=== PATIENT | male | born 1965 | race Caucasian/White ===

== ENCOUNTER 2017-04-20 11:03 | Inpatient (IN) | payer SELFPAY ==
[2017-04-20] MEDS: NS 1,000 ML IV ×2 (11:30→16:57)
[2017-04-20 11:48] LABS: BASO % 0.3 % (0.0-1.0); EOS # 0.1 10^3/uL (0.0-0.50); EOS % 0.6 % (0.0-3.0); HEMATOCRIT 41.1 % (42.0-52.0); HEMOGLOBIN 13.7 g/dl (14.0-18.0); IMMATURE GRANULOCYTE # 0.1 10^3/uL (0-0); IMMATURE GRANULOCYTE % 0.6 % (0-0); LYMPH # 1.5 10^3/uL (1.5-4.5); LYMPH % 10.5 % (24.0-44.0); MEAN CORPUSCULAR HEMOGLOBIN 30.3 pg (27.0-33.0); MEAN CORPUSCULAR HGB CONC 33.3 g/dl (32.0-36.5); MEAN CORPUSCULAR VOLUME 90.9 fl (80.0-96.0); MONO # 1.1 10^3/uL (0.0-0.8); MONO % 7.9 % (0.0-5.0); NEUTROPHILS # 11.1 10^3/uL (1.8-7.7); NEUTROPHILS % 80.1 % (36.0-66.0); PLATELET COUNT, AUTOMATED 367 10^3/uL (150-450); RED BLOOD COUNT 4.52 10^6/uL (4.30-6.10); RED CELL DISTRIBUTION WIDTH 12.9 % (11.5-14.5); WHITE BLOOD COUNT 13.9 10^3/uL (4.0-10.0)
[2017-04-20 12:03] LABS: INR 1.07
[2017-04-20 12:27] LABS: ALBUMIN 3.6 GM/DL (3.2-5.2); ALBUMIN/GLOBULIN RATIO 0.97 (1.00-1.93); ALKALINE PHOSPHATASE 66 U/L (45-117); ALT/SGPT 29 U/L (12-78); AMYLASE 30 U/L (25-115); ANION GAP 5 MEQ/L (8-16); AST/SGOT 20 U/L (7-37); BILIRUBIN,DIRECT 0.1 MG/DL (0.0-0.2); BILIRUBIN,TOTAL 0.7 MG/DL (0.2-1.0); BLOOD UREA NITROGEN 18 MG/DL (7-18); CALCIUM LEVEL 8.9 MG/DL (8.5-10.1); CARBON DIOXIDE LEVEL 29 MEQ/L (21-32); CHLORIDE LEVEL 104 MEQ/L (98-107); CREATININE FOR GFR 0.86 MG/DL (0.70-1.30); GLOMERULAR FILTRATION RATE > 60.0 (>56); GLUCOSE, FASTING 99 MG/DL (70-105); LIPASE 74 U/L (73-393); POTASSIUM SERUM 3.9 MEQ/L (3.5-5.1); SODIUM LEVEL 138 MEQ/L (136-145); TOTAL PROTEIN 7.3 GM/DL (6.4-8.2)
[2017-04-20 13:05] LABS: KETONE, URINE AUTO RFX TRACE mg/dL (NEGATIVE); LEUKOCYTE ESTERASE UR AUTO RFX NEGATIVE (NEGATIVE); MUCUS, URINE RFX SMALL (NEGATIVE); NITRITE, URINE AUTO RFX NEGATIVE (NEGATIVE); RBC, URINE AUTO RFX 3 /HPF (0-3); SQUAM EPITHELIAL CELL UR AURFX 0 /HPF (0-6); WBC, URINE AUTO RFX 1 /HPF (0-3)
[2017-04-20] MEDS ORDERED: zolPIDEM TARTRATE 10MG TAB PO (14:00)
[2017-04-20] MEDS ORDERED: MORPHINE 2 MG/ML 1ML SYRINGE IV (14:00)
[2017-04-20] MEDS ORDERED: MORPHINE 4 MG/ML 1ML SYRINGE IV (14:00)
[2017-04-20] MEDS ORDERED: NORCO, ANEXSIA 5/325MG TABLET (HYDROcodone/ACETAMINOPHEN) PO ×2 (14:00)
[2017-04-20] MEDS ORDERED: METOCLOPRAMIDE INJ 10MG/2ML VIAL (J2765) IV (14:00)
[2017-04-20] MEDS ORDERED: ONDANSETRON 4MG/2ML VIAL (J2405) IV (14:00)
[2017-04-20] MEDS ORDERED: PROMETHAZINE INJ 25 MG/ML VIAL (J2550) IV (14:00)
[2017-04-20] MEDS: CIPROFLOXACIN 400 MG in APPROPRIATE DILUENT 1 EA IV (16:57)
[2017-04-20] MEDS: PANTOPRAZOLE 40MG INJ (PROTONIX) (C9113) IV (16:57)
[2017-04-20] MEDS: KETOROLAC 30 MG/ML VIAL (J1885) IV (16:58)
[2017-04-20] MEDS: metroNIDAZOLE 500 MG in APPROPRIATE DILUENT 1 EA IV (18:09)
[2017-04-21] MEDS: metroNIDAZOLE 500 MG in APPROPRIATE DILUENT 1 EA IV ×3 (00:17→17:24)
[2017-04-21] MEDS: KETOROLAC 30 MG/ML VIAL (J1885) IV ×2 (00:18→14:12)
[2017-04-21] MEDS: CIPROFLOXACIN 400 MG in APPROPRIATE DILUENT 1 EA IV ×2 (03:17→14:12)
[2017-04-21] MEDS: NS 1,000 ML IV ×3 (04:52→14:02)
[2017-04-21 06:19] LABS: HEMATOCRIT 37.2 % (42.0-52.0); HEMOGLOBIN 12.1 g/dl (14.0-18.0); MEAN CORPUSCULAR HEMOGLOBIN 30.6 pg (27.0-33.0); MEAN CORPUSCULAR HGB CONC 32.5 g/dl (32.0-36.5); MEAN CORPUSCULAR VOLUME 93.9 fl (80.0-96.0); PLATELET COUNT, AUTOMATED 278 10^3/uL (150-450); RED BLOOD COUNT 3.96 10^6/uL (4.30-6.10); RED CELL DISTRIBUTION WIDTH 12.8 % (11.5-14.5); WHITE BLOOD COUNT 10.3 10^3/uL (4.0-10.0)
[2017-04-21 06:33] LABS: ANION GAP 6 MEQ/L (8-16); BLOOD UREA NITROGEN 20 MG/DL (7-18); CALCIUM LEVEL 8.3 MG/DL (8.5-10.1); CARBON DIOXIDE LEVEL 29 MEQ/L (21-32); CHLORIDE LEVEL 106 MEQ/L (98-107); CREATININE FOR GFR 0.94 MG/DL (0.70-1.30); GLOMERULAR FILTRATION RATE > 60.0 (>56); GLUCOSE, FASTING 83 MG/DL (70-105); POTASSIUM SERUM 4.2 MEQ/L (3.5-5.1); SODIUM LEVEL 141 MEQ/L (136-145)
[2017-04-21] MEDS: PANTOPRAZOLE 40MG INJ (PROTONIX) (C9113) IV (07:59)
[2017-04-21] MEDS: NICOTINE 14 MG/24 HR TRANSDERMAL TD (18:43)
[2017-04-22] MEDS: metroNIDAZOLE 500 MG in APPROPRIATE DILUENT 1 EA IV ×4 (00:11→23:18)
[2017-04-22] MEDS: NS 1,000 ML IV ×4 (00:12→23:18)
[2017-04-22] MEDS: CIPROFLOXACIN 400 MG in APPROPRIATE DILUENT 1 EA IV ×2 (03:08→14:17)
[2017-04-22 06:22] LABS: HEMATOCRIT 37.1 % (42.0-52.0); MEAN CORPUSCULAR HGB CONC 32.3 g/dl (32.0-36.5); MEAN CORPUSCULAR VOLUME 92.8 fl (80.0-96.0); PLATELET COUNT, AUTOMATED 307 10^3/uL (150-450); RED CELL DISTRIBUTION WIDTH 12.5 % (11.5-14.5); WHITE BLOOD COUNT 6.2 10^3/uL (4.0-10.0)
[2017-04-22 06:31] LABS: ANION GAP 4 MEQ/L (8-16); BLOOD UREA NITROGEN 15 MG/DL (7-18); CALCIUM LEVEL 8.3 MG/DL (8.5-10.1); CARBON DIOXIDE LEVEL 30 MEQ/L (21-32); CHLORIDE LEVEL 108 MEQ/L (98-107); CREATININE FOR GFR 0.88 MG/DL (0.70-1.30); GLOMERULAR FILTRATION RATE > 60.0 (>56); GLUCOSE, FASTING 91 MG/DL (70-105); POTASSIUM SERUM 4.3 MEQ/L (3.5-5.1); SODIUM LEVEL 142 MEQ/L (136-145)
[2017-04-22] MEDS: PANTOPRAZOLE 40MG INJ (PROTONIX) (C9113) IV (08:47)
[2017-04-22] MEDS: NICOTINE 14 MG/24 HR TRANSDERMAL TD (08:48)
[2017-04-22] MEDS: ACETAMINOPHEN TAB 650MG DOSE (2X325MG) PO (16:36)
[2017-04-23] MEDS: CIPROFLOXACIN 400 MG in APPROPRIATE DILUENT 1 EA IV (03:02)
[2017-04-23 06:46] LABS: HEMATOCRIT 36.3 % (42.0-52.0); MEAN CORPUSCULAR HGB CONC 33.1 g/dl (32.0-36.5); MEAN CORPUSCULAR VOLUME 90.8 fl (80.0-96.0); PLATELET COUNT, AUTOMATED 314 10^3/uL (150-450); RED CELL DISTRIBUTION WIDTH 12.3 % (11.5-14.5); WHITE BLOOD COUNT 6.1 10^3/uL (4.0-10.0)
[2017-04-23 07:09] LABS: ANION GAP 7 MEQ/L (8-16); BLOOD UREA NITROGEN 12 MG/DL (7-18); CARBON DIOXIDE LEVEL 27 MEQ/L (21-32); CHLORIDE LEVEL 108 MEQ/L (98-107); CREATININE FOR GFR 0.86 MG/DL (0.70-1.30); GLOMERULAR FILTRATION RATE > 60.0 (>56); GLUCOSE, FASTING 92 MG/DL (70-105); POTASSIUM SERUM 4.3 MEQ/L (3.5-5.1); SODIUM LEVEL 142 MEQ/L (136-145)
[2017-04-23] MEDS: NICOTINE 14 MG/24 HR TRANSDERMAL TD (08:53)
[2017-04-23] MEDS: metroNIDAZOLE 500 MG in APPROPRIATE DILUENT 1 EA IV (08:53)
[2017-04-23] MEDS: PANTOPRAZOLE 40MG INJ (PROTONIX) (C9113) IV (08:53)
[2017-04-23] MEDS: NS 1,000 ML IV (08:53)
[2017-04-23] MEDS ORDERED: metroNIDAZOLE (FLAGYL) 500 MG TAB PO (16:00)
[2017-04-23] MEDS ORDERED: CIPROFLOXACIN 500 MG TAB PO (18:00)
== END 2017-04-23 10:54 | disposition home or self-care (01) | DRG 244 ==
LOC: M ED 11:03 → M ED INP 13:57 → M MSPAV 15:59
DX: K57.20 Diverticulitis of large intestine with perforation and abscess without bleeding (principal)

== ENCOUNTER 2019-05-19 11:02 | Day surgery (SDC) | payer MEDICAID, OTHER ==
[~2019-05-19] VITALS: Ht 182.9 cm; Wt 75.3 kg
[~2019-05-19 11:02] MED LIST: CIPR500T3 PO; FLAG500T PO; NS 1,000 ML IV ONE
[2019-05-19] MEDS ORDERED: LIDOCAINE 2% INJ 100 MG/5 ML SDV (FOR ANES.) As Ordered ONE (11:03)
[2019-05-19] MEDS ORDERED: propofoL 200 MG/20 ML VIAL As Ordered ONE (11:03)
--- NOTE | 2019-05-19 12:10 | ROOR ---
Patient Name: Srinivas Stevens Procedure Date: 05/19/2019 11:52 AM Date of : 1965 Age: 53 Room: [facility] Gender: Male Note Status: Finalized Procedure: Colonoscopy Indications: Screening for colorectal malignant neoplasm Providers: Isidoro Srivastava Jr, MD Referring MD: 1. No Referring Physician 1. No Referring Physician, Admin., Isidoro Srivastava Jr, MD Requesting Provider: Medicines: Propofol per Anesthesia Complications: No immediate complications. Procedure: Pre-Anesthesia Assessment: - Prior to the procedure, a History and Physical was performed, and patient medications and allergies were reviewed. The patient is competent. The risks and benefits of the procedure and the sedation options and risks were discussed with the patient. All questions were answered and informed consent was obtained. Patient identification and proposed procedure were verified by the physician and the nurse in the pre-procedure area and in the procedure room. Mental Status Examination: alert and oriented. Airway Examination: normal oropharyngeal airway and neck mobility. Respiratory Examination: clear to auscultation. CV Examination: normal. ASA Grade Assessment: II - A patient with mild systemic disease. After reviewing the risks and benefits, the patient was deemed in satisfactory condition to undergo the procedure. The anesthesia plan was to use moderate sedation / analgesia (conscious sedation). Immediately prior to administration of medications, the patient was re-assessed for adequacy to receive sedatives. The heart rate, respiratory rate, oxygen saturations, blood pressure, adequacy of pulmonary ventilation, and response to care were monitored throughout the procedure. The physical status of the patient was re-assessed after the procedure. The Colonoscope was introduced through the sigmoid colostomy and advanced to the cecum, identified by appendiceal orifice and ileocecal valve. The colonoscopy was performed without difficulty. The patient tolerated the procedure well. The quality of the bowel preparation was adequate. Findings: The rectum, recto-sigmoid colon, descending colon, transverse colon, ascending colon, cecum, appendiceal orifice and ileocecal valve appeared normal. Impression: - The rectum, recto-sigmoid colon, descending colon, transverse colon, ascending colon, cecum, appendiceal orifice and ileocecal valve are normal. - No specimens collected. Recommendation: - Discharge patient to home (ambulatory). - Repeat colonoscopy in 10 years for screening purposes. Isidoro Srivastava MD Isidoro Srivastava Jr, MD 05/19/2019 12:09:41 PM Electronically signed by Isidoro Srivastava Jr, MD Number of Addenda: 0 Note Initiated On: 05/19/2019 11:52 AM Estimated Blood Loss: Estimated blood loss: none.
[2019-05-19 12:39] VITALS: BP 152/92
== END 2019-05-19 12:41 | disposition home or self-care (01) ==
LOC: M OPP 11:02
PROVIDERS: ATTEND Surgery
DX: Z12.11 Encounter for screening for malignant neoplasm of colon (principal); K57.92 Diverticulitis of intestine, part unspecified, without perforation or abscess without bleeding; Z93.3 Colostomy status; F17.210 Nicotine dependence, cigarettes, uncomplicated

== ENCOUNTER 2019-08-04 21:54 | Emergency (ER) | payer MEDICAID, OTHER ==
[~2019-08-04] VITALS: Ht 182.9 cm; Wt 77.4 kg
[~2019-08-04 21:54] MED LIST changes: -NS 1,000 ML IV ONE
[2019-08-04 23:01] LABS: BASO # 0.1 10^3/uL (0.0-0.2); BASO % 0.7 % (0.0-1.0); EOS # 0.2 10^3/uL (0.0-0.5); EOS % 2.9 % (0.0-3.0); HEMATOCRIT 41.2 % (42.0-52.0); LYMPH # 2.1 10^3/uL (1.5-5.0); LYMPH % 27.5 % (24.0-44.0); MEAN CORPUSCULAR VOLUME 91.2 fl (80.0-96.0); MONO # 0.5 10^3/uL (0.0-0.8); MONO % 6.6 % (0.0-5.0); NEUTROPHILS # 4.7 10^3/uL (1.5-8.5); PLATELET COUNT, AUTOMATED 288 10^3/uL (150-450); RED BLOOD COUNT 4.52 10^6/uL (4.30-6.10); WHITE BLOOD COUNT 7.5 10^3/uL (4.0-10.0)
[2019-08-04 23:11] LABS: INR 1.12; PROTHROMBIN TIME 14.2 SECONDS (11.8-14.0)
[2019-08-04 23:19] LABS: BLOOD UREA NITROGEN 25 MG/DL (7-18); CALCIUM LEVEL 8.6 MG/DL (8.5-10.1); CARBON DIOXIDE LEVEL 29 MEQ/L (21-32); CHLORIDE LEVEL 106 MEQ/L (98-107); CREATININE FOR GFR 1.05 MG/DL (0.70-1.30); GLOMERULAR FILTRATION RATE > 60.0 (>56); GLUCOSE, FASTING 128 MG/DL (70-100); POTASSIUM SERUM 3.7 MEQ/L (3.5-5.1); SODIUM LEVEL 140 MEQ/L (136-145)
[2019-08-04 23:30] VITALS: BP 136/75
== END 2019-08-04 23:35 | disposition home or self-care (01) ==
LOC: M ED 21:54
DX: K94.01 Colostomy hemorrhage (principal); F17.200 Nicotine dependence, unspecified, uncomplicated; Z90.49 Acquired absence of other specified parts of digestive tract

== ENCOUNTER → 2020-01-03 | Outpatient (CLI) | payer OTHER ==
[~2020-01-03] MED LIST changes: +HYDR-3715 PO
--- NOTE | 2020-01-03 20:29 | ECGEPIP ---
[facility] Test Date: 2020-01-03 Pat Name: KELLEY BERGMAN Department: Room: - Gender: Male Chemist: ANDREW : 1965 Requested By: Kale Lopez Order Number: [id number] Reading MD: Dariusz Cohen Measurements Intervals Oxly Rate: 69 P: 61 CT: 163 QRS: 33 QRSD: 79 T: 41 QT: 356 QTc: 383 Interpretive Statements Normal sinus rhythm Normal EKG Comparison tracing not on file Electronically Signed on 01-03-2020 20:29:29 EDT by Dariusz Cohen
== END ==
LOC: M EKG 12:32
PROVIDERS: ATTEND Anesthesiology
DX: Z01.818 Encounter for other preprocedural examination (principal); K92.9 Disease of digestive system, unspecified

== ENCOUNTER → 2020-01-07 | Outpatient (CLI) | payer OTHER | LOC: M LABSMTC 09:14 | PROVIDERS: ATTEND Anesthesiology | DX: Z01.812 Encounter for preprocedural laboratory examination (principal); Z20.828 Contact with and (suspected) exposure to other viral communicable diseases | CPT/HCPCS: C9803; U0003 ==

== ENCOUNTER 2020-01-12 08:30 | Inpatient (IN) | payer OTHER ==
[~2020-01-12] VITALS: Ht 182.9 cm; Wt 74.8 kg
[2020-01-12] VITALS (8 sets, daily range): BP systolic 130–147; BP diastolic 72–85
--- NOTE | 2020-01-12 06:47 | HPE ---
DATE OF ANTICIPATED ADMISSION: 01/12/2020 Patient is a 54-year-old male who developed diverticulitis and a complicated diverticulitis which required sigmoid colectomy and colostomy. He actually has done very well. [place] and was hoping to get this reversed. He has been doing well since that time. Earlier this year during the COVID epidemic we were able to do a colonoscopy, and it revealed a normal descending colon and rectal stump but otherwise no significant abnormalities. Since I saw him, he is here for additional recommendations. He has noticed a little more bulging at the ostomy site when he is doing heavy lifting and strenuous work. PAST MEDICAL HISTORY: Significant for: 1. Diverticulitis. 2. History of right inguinal hernia repair. MEDICATIONS: None. ALLERGIES: None. PHYSICAL EXAMINATION: Reveals a 54-year-old male who looks stated age. HEENT: Unremarkable. NECK: Supple without adenopathy. LUNGS: Clear to auscultation without crackles, wheezes, or rhonchi. HEART: Regular. ABDOMEN: Soft, nontender, nondistended, although he has some mild bulging around his ostomy, and I wonder if he is developing a small parastomal hernia at this time. IMPRESSION AND PLAN: Patient has evidence of colostomy status post perforated diverticulitis and requests reversal of this, and, indeed, I would recommend a laparoscopic colostomy reversal. We discussed the risks as well as benefits associated with this, those including, but not limited to, infection, bleeding, damage to surrounding structures, recurrence of diverticulitis, recurrence of hernia, need for colostomy, need for open operative intervention, etc. He understands if there is a parastomal hernia, that we will be repairing this primarily and will probably not be repairing this with mesh given the increased possibility of infection. He understands that he will be hospitalized for typically 3-5 days. He will receive a mechanical as well as antibiotic bowel prep preoperatively, have intravenous (IV) antibiotics intraoperative, Rosales, thromboembolic deterrents (TEDs), sequentials, and he agrees to proceed with this as scheduled. JUAN C
[~2020-01-12 08:30] MED LIST changes: +ERTAPENEM SODIUM 1 GM in NS MINI-BAG PLUS 50 ML IV ONE; -HYDR-3715 PO; +LIDOCAINE 2% 100MG/5ML SDV (FOR ANES.) As Ordered ONE; +LR 1,000 ML IV ONE; +ROCURONIUM BROMIDE 50 MG/5 ML VIAL As Ordered ONE; +propofoL 200 MG/20 ML VIAL As Ordered ONE
[2020-01-12] MEDS ORDERED: fentaNYL 250 MCG/5 ML INJECTION (J3010) As Ordered ONE (09:13)
[2020-01-12] MEDS ORDERED: MIDAZOLAM INJ 2MG/2ML VIAL (J2250 PER 1MG) As Ordered ONE (09:13)
[2020-01-12] MEDS ORDERED: BUPIVACAINE/EPIN 0.25% 30 ML VIAL As Ordered ONE (10:08)
[2020-01-12] MEDS ORDERED: BUPIVACAINE LIPOSOME/PF 1.3% 20ML VIAL (13.3MG/ML)(EXPAREL)(C9290 PER1MG) As Ordered ONE (10:10)
[2020-01-12] MEDS ORDERED: BUPIVACAINE HCL 0.25% 10ML VIAL As Ordered ONE (10:10)
[2020-01-12] MEDS ORDERED: GLUCAGON INJ 1MG VIAL As Ordered ONE (10:11)
[2020-01-12] MEDS ORDERED: METOCLOPRAMIDE INJ 10MG/2ML VIAL (J2765 PER 1) As Ordered ONE (10:55)
[2020-01-12] MEDS ORDERED: ONDANSETRON 4MG/2ML VIAL As Ordered ONE (10:55)
[2020-01-12] MEDS ORDERED: SUGAMMADEX SODIUM 500 MG/5 ML VIAL (BRIDION) As Ordered ONE (10:55)
[2020-01-12] MEDS ORDERED: ROCURONIUM BROMIDE 50 MG/5 ML VIAL As Ordered ONE (11:34)
[2020-01-12] MEDS ORDERED: dexameTHASONE 4 MG/ML 1ML VIAL (J1100 PER 1MG) As Ordered ONE (12:58)
[2020-01-12] MEDS ORDERED: fentaNYL 100 MCG/2 ML INJECTION (J3010) As Ordered ONE (13:00)
[2020-01-12] MEDS ORDERED: VECURONIUM BROMIDE 10MG VIAL As Ordered ONE (13:41)
[2020-01-12] MEDS ORDERED: ONDANSETRON 4MG/2ML VIAL IV PRN ×2 (14:45→15:00)
[2020-01-12] MEDS ORDERED: NORCO, ANEXSIA 5/325MG TABLET (HYDROcodone/ACETAMINOPHEN) PO PRN ×2 (14:45)
[2020-01-12] MEDS ORDERED: IPRATROPIUM 0.5MG/ALBUTEROL 2.5MG INH SOL UD 3ML (DUONEB) NEB PRN (14:45)
[2020-01-12] MEDS ORDERED: MORPHINE 2 MG/ML 1ML VIAL (J2270) IV PRN ×2 (14:45)
[2020-01-12] MEDS ORDERED: oxyCODONE 5MG TAB PO PRN (15:00)
[2020-01-12] MEDS ORDERED: fentaNYL 100 MCG/2 ML INJECTION (J3010) IV PRN (15:00)
[2020-01-12] MEDS ORDERED: LR 1,000 ML IV SCH (15:00)
[2020-01-12] MEDS: NS 1,000 ML IV SCH ×2 (16:01→23:57)
[2020-01-12] MEDS: KETOROLAC 30 MG/ML 1ML VIAL IV SCH ×2 (16:19→21:23)
[2020-01-12] MEDS: IPRATROPIUM 0.5MG/ALBUTEROL 2.5MG INH SOL UD 3ML (DUONEB) NEB SCH (19:46)
[2020-01-12] MEDS: ALVIMOPAN 12 MG CAPSULE (ENTEREG) PO SCH (21:26)
[2020-01-13] VITALS (7 sets, daily range): BP systolic 117–136; BP diastolic 68–87
[2020-01-13] MEDS: IPRATROPIUM 0.5MG/ALBUTEROL 2.5MG INH SOL UD 3ML (DUONEB) NEB SCH ×4 (01:19→20:00)
[2020-01-13] MEDS: KETOROLAC 30 MG/ML 1ML VIAL IV SCH ×4 (03:41→20:35)
[2020-01-13 06:34] LABS: HEMATOCRIT 42.2 % (42.0-52.0); HEMOGLOBIN 13.6 g/dl (13.5-17.5); MEAN CORPUSCULAR HEMOGLOBIN 29.8 pg (27.0-33.0); MEAN CORPUSCULAR HGB CONC 32.2 g/dl (32.0-36.5); MEAN CORPUSCULAR VOLUME 92.5 fl (80.0-96.0); PLATELET COUNT, AUTOMATED 256 10^3/uL (150-450); RED BLOOD COUNT 4.56 10^6/uL (4.30-6.10)
[2020-01-13 07:05] LABS: BLOOD UREA NITROGEN 17 MG/DL (7-18); CALCIUM LEVEL 8.3 MG/DL (8.5-10.1); CARBON DIOXIDE LEVEL 24 MEQ/L (21-32); CHLORIDE LEVEL 109 MEQ/L (98-107); CREATININE FOR GFR 0.96 MG/DL (0.70-1.30); GLOMERULAR FILTRATION RATE > 60.0 (>56); GLUCOSE, FASTING 89 MG/DL (70-100); POTASSIUM SERUM 4.2 MEQ/L (3.5-5.1); SODIUM LEVEL 140 MEQ/L (136-145)
[2020-01-13] MEDS: NS 1,000 ML IV SCH (07:58)
[2020-01-13] MEDS: PANTOPRAZOLE 40MG VIAL (C9113 PER 1) IV SCH (08:32)
[2020-01-13] MEDS: ALVIMOPAN 12 MG CAPSULE (ENTEREG) PO SCH ×2 (08:33→20:35)
[2020-01-13] MEDS ORDERED: ERTAPENEM SODIUM 1 GM in NS MINI-BAG PLUS 50 ML IV ONE (11:00)
[2020-01-14 02:00] VITALS: BP 122/78
[2020-01-14] MEDS: IPRATROPIUM 0.5MG/ALBUTEROL 2.5MG INH SOL UD 3ML (DUONEB) NEB SCH ×3 (02:00→14:08)
[2020-01-14] MEDS: KETOROLAC 30 MG/ML 1ML VIAL IV SCH ×3 (02:59→16:00)
[2020-01-14 06:00] VITALS: BP 117/62
[2020-01-14 06:28] LABS: HEMATOCRIT 36.6 % (42.0-52.0); HEMOGLOBIN 12.1 g/dl (13.5-17.5); MEAN CORPUSCULAR HEMOGLOBIN 30.6 pg (27.0-33.0); MEAN CORPUSCULAR HGB CONC 33.1 g/dl (32.0-36.5); MEAN CORPUSCULAR VOLUME 92.7 fl (80.0-96.0); PLATELET COUNT, AUTOMATED 205 10^3/uL (150-450); RED BLOOD COUNT 3.95 10^6/uL (4.30-6.10); WHITE BLOOD COUNT 7.3 10^3/uL (4.0-10.0)
[2020-01-14 07:02] LABS: BLOOD UREA NITROGEN 19 MG/DL (7-18); CALCIUM LEVEL 8.4 MG/DL (8.5-10.1); CARBON DIOXIDE LEVEL 26 MEQ/L (21-32); CHLORIDE LEVEL 107 MEQ/L (98-107); CREATININE FOR GFR 0.84 MG/DL (0.70-1.30); GLOMERULAR FILTRATION RATE > 60.0 (>56); GLUCOSE, FASTING 83 MG/DL (70-100); POTASSIUM SERUM 4.1 MEQ/L (3.5-5.1); SODIUM LEVEL 138 MEQ/L (136-145)
[2020-01-14] MEDS: PANTOPRAZOLE 40MG VIAL (C9113 PER 1) IV SCH (09:26)
[2020-01-14 10:00] VITALS: BP 117/73
[2020-01-14 14:00] VITALS: BP 113/72
[2020-01-14] MEDS ORDERED: HYDR-3715 PO (16:01)
--- NOTE | 2020-01-18 14:33 | IPN ---
DATE: 01/13/2020 SUBJECTIVE: Patient overall has been doing well overnight. He has had no nausea or vomiting. He has had some flatus without bowel movements. His white count is slightly elevated today, which is probably reactive from his operative intervention yesterday. Overall he is looking comfortable in bed, and has a Rosales catheter in place. His I.V.'s are in place, but he is thirsty at this time, without nausea and without vomiting. His abdomen otherwise is soft, nontender and non-distended. Drains are draining serosanguineous drainage from the right HAMZAH side and the left incision drain/wound drain is not draining all that much fluid. IMPRESSION/PLAN: Patient seems to be making some good progress. Will start some clear liquids. If he tolerates those, will probably progress him tomorrow to a regular diet. In addition, will Hep-Lock his I.V. and possibly discontinue his Rosales catheter later on in the day. JUAN C
--- NOTE | 2020-01-18 14:38 | IPN ---
DATE: 01/14/2020 SUBJECTIVE: Patient overall has been doing great overnight, increasing his activity. He has had a few loose bowel movements without any significant blood. His Jordon-Astudillo drain is still draining some serosangeneous fluid. He has not had any nausea, no vomiting, and overall has no significant abdominal pain. He is hoping to increase his diet. His white count has dropped down nicely to normal. He did have a little bit of a low-grade temperature last night, but seems to be doing well with that. IMPRESSION/PLAN: Patient seems to be making some good progress. At this time, will give him a regular diet and see how he does with a regular diet. If he is doing well, possibly can be discharged home later on today with plans of discontinuing the HAMZAH drain as well as the incision drain and have him follow-up next week in the office. Otherwise, we will keep him until tomorrow and plan on discharge after breakfast in the morning if he continues to do as well as he is currently doing. JUAN C
--- NOTE | 2020-02-14 07:07 | RO ---
DATE OF OPERATION: 01/12/2020 PREOPERATIVE DIAGNOSIS: History of perforated diverticulitis with colostomy. POSTOPERATIVE DIAGNOSIS: History of perforated diverticulitis with colostomy. PROCEDURE: Laparoscopic splenic flexure takedown and laparoscopic coloproctostomy. SURGEON: Isidoro Srivastava MD CONFECTIONERY MAKER: Ronald Irving DO ANESTHESIA: General endotracheal anesthesia. EBL: 50 mL. FLUIDS: Crystalloid. BRIEF PROCEDURE SUMMARY: The patient was brought to the operating room, was given general anesthesia. After adequate anesthesia and preoperative antibiotics were given the patient was prepped and draped in usual sterile fashion. The colostomy site was closed with running baseball stitch #0 Prolene. An elliptical incision was made around this site, after this was created with skin knife electrocautery was used to cut the dermis, underlying subcutaneous tissue and this was mobilized quite nicely at the ostomy site using combination of blunt and sharp dissection and eventually after great deal of dissection around the ostomy site and even a little bit around the ostomy intraperitoneal portion, the Mary Jane catheter was placed in this site after the ostomy was brought together with #0 Vicryl and then additional 5 mm trocars were placed to help with dissection. Once the trocars were placed there was a great deal of intraabdominal adhesions, mostly in the pelvis though, that needed to be taken down. There was a significant amount of dissection that needed to occur in this area but eventually the adhesions around the rectal stump were taken down and mobilized and prior to placing Mary Jane catheter, placed an EEA stapler within the end of the descending colon and this anvil was brought out through the staple line. This was intraabdominal and when I was trying to bring this down to the rectal stump it really was on too much tension. Thus I did need to bring down the splenic flexure first, taking the omentum off the transverse colon and mobilizing in this avascular plane around the splenic flexure using combination of blunt dissection as well as Harmonic scalpel ad then pulling this off the lateral abdominal wall, taking down the white line of Toldt and then taking this off Gerotas on the lateral aspect. Eventually, once this was mobilized nicely and brought down. Then this did give some nice redundancy and was able to reach down into the pelvis without significant tension. The anastomosis was created without tension and donuts were appreciated. This was placed underwater and insufflation of the rectal stump/anastomosis was created and revealed a good airtight anastomosis. #19 Jordon-Astudillo drain was left in the bed of the dissection and all trocars were removed under direct visualization. The ostomy was closed with reva loosely and dry, sterile dressing applied on all incisions. The patient was awakened from his anesthesia, extubated and awake, alert, hemodynamically stable. Sponge and needle counts correct x2. MTDD
== END 2020-01-14 17:14 | disposition home or self-care (01) | DRG 221 ==
LOC: M OR 08:30 → M MSPAV 16:04
PROVIDERS: ADMIT Surgery; ATTEND Surgery
PROC: 0DBL4ZZ Excision of Transverse Colon, Percutaneous Endoscopic Approach (ICD-10-PCS; principal; 2020-01-12 09:30)
DX: Z43.3 Encounter for attention to colostomy (principal)

== ENCOUNTER 2021-10-26 06:27 | Emergency (ER) | payer OTHER ==
[~2021-10-26] VITALS: Ht 182.9 cm; Wt 75.9 kg
[~2021-10-26 06:27] MED LIST changes: -ERTAPENEM SODIUM 1 GM in NS MINI-BAG PLUS 50 ML IV ONE; +HYDR-3715 PO; -LIDOCAINE 2% 100MG/5ML SDV (FOR ANES.) As Ordered ONE; -LR 1,000 ML IV ONE; -ROCURONIUM BROMIDE 50 MG/5 ML VIAL As Ordered ONE; -propofoL 200 MG/20 ML VIAL As Ordered ONE
[2021-10-26 09:55] VITALS: BP 130/70
== END 2021-10-26 09:59 | disposition home or self-care (01) ==
LOC: M ED 06:27
DX: M79.604 Pain in right leg (principal); Z98.890 Other specified postprocedural states; Z90.49 Acquired absence of other specified parts of digestive tract